=== PATIENT | male | born 1970 | race American Indian/Alaskan Native ===

== ENCOUNTER 2020-09-04 00:45 | Emergency (ER) | payer SELFPAY ==
[2020-09-04] MEDS ORDERED: ASPIRIN 325 MG TAB PO ONE (01:01)
--- NOTE | 2020-09-04 01:27 | XRay Report ---
CHEST 1 VIEW INDICATION / CLINICAL INFORMATION: Chest Pain. Difficulty breathing COMPARISON: None available. FINDINGS: SUPPORT DEVICES: None. HEART / MEDIASTINUM: No significant abnormality. LUNGS / PLEURA: No significant pulmonary or pleural abnormality. No pneumothorax. ADDITIONAL FINDINGS: Large amount of stool seen throughout the visualized colon in the upper abdomen. IMPRESSION: 1. No acute pulmonary disease. 2. Incidental finding of large amount of stool visualized in the upper abdomen. Signer Name: Vero Kendall MD Signed: 09/04/2020 1:23 AM Workstation Name: [id number]
[2020-09-04 02:06] VITALS: BP 154/94
[2020-09-04 02:23] LABS: BUN/Creatinine Ratio 23; Blood Urea Nitrogen 27 mg/dL (9-20); Calcium 9.3 mg/dL (8.4-10.2); Hemolysis Index 4
[2020-09-04 02:50] LABS: Basophils # (Auto) 0.1 K/mm3 (0.0-0.1); Basophils % (Auto) 1.6 % (0.0-1.8); Eosinophils # (Auto) 0.1 K/mm3 (0.0-0.4); Eosinophils % (Auto) 1.2 % (0.0-4.3); Hematocrit 39.1 % (35.5-45.6); Hemoglobin 13.4 gm/dl (11.8-15.2); Lymphocytes # (Auto) 2.4 K/mm3 (1.2-5.4); Lymphocytes % (Auto) 43.7 % (13.4-35.0); Mean Corpuscular HGB Conc 34 % (32-34); Mean Corpuscular Volume 88 fl (84-94); Monocytes # (Auto) 0.4 K/mm3 (0.0-0.8); Monocytes % (Auto) 6.4 % (0.0-7.3); Platelet Count 202 K/mm3 (140-440); Red Blood Count 4.43 M/mm3 (3.65-5.03); Red Cell Distribution Width 13.8 % (13.2-15.2)
[2020-09-04] MEDS ORDERED: INSULIN REGULAR, HUMAN 100 UNITS/1 ML ONE (11:30)
[2020-09-04] MEDS ORDERED: INSULIN REGULAR, HUMAN 100 UNIT/ML 3ML VIAL IV ONE (11:38)
[2020-09-04] MEDS ORDERED: SODIUM CHLORIDE 0.9% 1000 ML 1,000 ML IV ONE (11:38)
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
== END 2020-09-04 15:50 | disposition home or self-care (01) ==
LOC: ED 00:45
DX: E11.65 Type 2 diabetes mellitus with hyperglycemia (principal); R07.9 Chest pain, unspecified; Z98.890 Other specified postprocedural states
CPT/HCPCS: 36415; 71045; 80048; 82962; 84484; 85025; 93005; 96361; 96374; 99284; J7030; J1815

== ENCOUNTER 2021-03-08 11:31 | Emergency (ER) | payer OTHER ==
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
[2021-03-08 13:17] VITALS: BP 164/94
== END 2021-03-08 12:50 | disposition home or self-care (01) ==
LOC: ED 11:31
DX: M54.6 Pain in thoracic spine (principal); G89.29 Other chronic pain; E11.9 Type 2 diabetes mellitus without complications; Z98.890 Other specified postprocedural states; Z79.4 Long term (current) use of insulin; Z79.899 Other long term (current) drug therapy
CPT/HCPCS: 99282

== ENCOUNTER 2021-04-19 13:22 | Emergency (ER) | payer OTHER ==
[2021-04-19 13:35] VITALS: BP 151/86
--- NOTE | 2021-04-19 14:05 | XRay Report ---
CHEST 2 VIEWS INDICATION / CLINICAL INFORMATION: chest and right shoulder pain. COMPARISON: 09/04/20 FINDINGS: SUPPORT DEVICES: None. HEART / MEDIASTINUM: No significant abnormality. LUNGS / PLEURA: No significant pulmonary or pleural abnormality. No pneumothorax. ADDITIONAL FINDINGS: No significant additional findings. IMPRESSION: 1. No acute findings. Signer Name: Mansi Martinez MD Signed: 04/19/2021 2:01 PM Workstation Name: [id number]
[2021-04-19] MEDS ORDERED: ASPIRIN 325 MG TAB PO ONE (15:55)
--- NOTE | 2021-04-19 15:57 | Event Note ---
ED Screening Note ED Screening Note: Patient is a 50-year-old male presents emergency room complaints of substernal chest pain that began this morning He states the pain radiated to his right shoulder He describes the pain as an aching States he had some mild shortness of breath He denies any nausea, vomiting, diaphoresis, leg swelling He denies any recent travel, recent surgery, recent immobilization Past medical history of diabetes He denies any no family history of heart disease He has never had a stress test He is a non-smoker This initial assessment/diagnostic orders/clinical plan/treatment(s) is/are subject to change based on patients health status, clinical progression and re- assessment by fellow clinical providers in the ED. Further treatment and workup at subsequent clinical providers discretion. Patient/guardian urged not to elope from the ED as their condition may be serious if not clinically assessed and managed. Initial orders include: CP protocol
[2021-04-19 16:31] LABS: Basophils # (Auto) 0.1 K/mm3 (0.0-0.1); Basophils % (Auto) 1.1 % (0.0-1.8); Eosinophils # (Auto) 0.1 K/mm3 (0.0-0.4); Eosinophils % (Auto) 1.4 % (0.0-4.3); Hematocrit 37.4 % (35.5-45.6); Hemoglobin 12.8 gm/dl (11.8-15.2); Lymphocytes # (Auto) 1.8 K/mm3 (1.2-5.4); Lymphocytes % (Auto) 36.2 % (13.4-35.0); Mean Corpuscular HGB Conc 34 % (32-34); Mean Corpuscular Volume 87 fl (84-94); Monocytes # (Auto) 0.4 K/mm3 (0.0-0.8); Monocytes % (Auto) 7.1 % (0.0-7.3); Platelet Count 165 K/mm3 (140-440); Red Blood Count 4.28 M/mm3 (3.65-5.03); Red Cell Distribution Width 13.6 % (13.2-15.2)
[2021-04-19 16:48] LABS: Alanine Aminotransferase 10 units/L (7-56); Albumin 3.8 g/dL (3.9-5); BUN/Creatinine Ratio 19; Blood Urea Nitrogen 21 mg/dL (9-20); Calcium 9.1 mg/dL (8.4-10.2); Hemolysis Index 13
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
--- NOTE | 2021-04-22 08:50 | Electrocardiograph Report ---
[facility] Test Date: 2021-04-19 Test Time: 13:27:21 Pat Name: JULI TEJEDA Department: Room: Gender: M Grinding Machine Tender: EDU : 1970 Requested By: SAL SOW Order Number: [id number] Reading MD: Talha Linda Measurements Intervals [place] Rate: 85 P: 100 OR: 139 QRS: 12 QRSD: 78 T: 36 QT: 343 QTc: 409 Interpretive Statements Sinus rhythm No previous ECG available for comparison Electronically Signed On 04-22-2021 8:49:46 EDT by Talha Linda
== END 2021-04-19 18:34 | disposition home or self-care (01) ==
LOC: ED 13:22
DX: K21.9 Gastro-esophageal reflux disease without esophagitis (principal); E11.8 Type 2 diabetes mellitus with unspecified complications
CPT/HCPCS: 36415; 71046; 80053; 83880; 84484; 85025; 93005; 99283